=== PATIENT | female | born 2005 | race African-American/Black ===

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

== ENCOUNTER 2025-06-12 09:01 | Emergency (ER) | payer OTHER, SELFPAY ==
[2025-06-12 09:19] VITALS: BP 120/80; BMI 16.8
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
[2025-06-12 10:06] LABS: Hematocrit 36.3 % (37.0-47.0); Hemoglobin 12.9 g/dL (12.0-16.0); Mean Corp Hgb Conc. 35.5 g/dL (33.0-37.0); Mean Corpuscular Volume 82.7 fL (81.0-99.0); Nucleated Red Blood Cells % 0 %; Platelet Count 322 10^3/uL (130-400); Red Cell Dist. Width 12.2 % (11.5-14.5)
[2025-06-12 10:15] LABS: ALT (SGPT) 14 U/L (0-35); AST (SGOT) 20 U/L (14-36); Albumin 4.4 g/dl (3.5-5.0); Alkaline Phosphatase 68 U/L (38-126); Blood Urea Nitrogen 8 mg/dl (7-17); Calcium 9.4 mg/dl (8.4-10.2); Carbon Dioxide 22 mmol/L (22-30); Chloride 106 mmol/L (98-107); Estimated Creatinine Clearance 95 ml/min; Glucose 109 mg/dl (70-99); Potassium 4.0 mmol/L (3.5-5.1); Sodium 136 mmol/L (135-145); Total Protein 7.8 g/dl (6.3-8.2); eGFR > 60.00
[2025-06-12 10:16] LABS: HCG, Serum Qualitative Screen Negative
[2025-06-12 14:15] VITALS: BP 122/74
[2025-06-12 18:25] VITALS: BP 120/64
== END 2025-06-12 18:27 ==
LOC: EMR 09:01
PROVIDERS: EMERGENCY PHYSICIAN Emergency Medicine
DX: F41.9 Anxiety disorder, unspecified (principal); F12.90 Cannabis use, unspecified, uncomplicated; K50.90 Crohn's disease, unspecified, without complications
CPT/HCPCS: 99285; 80053; 80306; 82077; 84703; 85025

== ENCOUNTER 2025-07-09 19:51 | Emergency (ER) | payer OTHER, SELFPAY ==
[2025-07-09 19:52] VITALS: BP 103/72
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
[2025-07-09 20:10] VITALS: BMI 18.1
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
[2025-07-09 21:37] VITALS: BP 99/69
--- NOTE | 2025-07-09 21:39 | EDRN ---
Dr Proctor said crisis is finished with pt and pt can be discharge home. This RN woke pt to give her d/c instructions. Father present at bedside. Father said pt will be going home with him tonight. Pt given outpatient resources by crisis, has
no questions about any of information provided.
== END 2025-07-09 21:45 | disposition home or self-care (01) ==
LOC: EMR 19:51
PROVIDERS: EMERGENCY PHYSICIAN Emergency Medicine
DX: F32.A Depression, unspecified (principal); F12.90 Cannabis use, unspecified, uncomplicated
CPT/HCPCS: 99283